=== PATIENT | female | born 1990 | race Caucasian/White ===

== ENCOUNTER 2018-07-02 22:28 | Emergency (ER) | payer OTHER ==
[2018-07-02] MEDS ORDERED: NS 1,000 ML IV ONE (22:54)
[2018-07-02 23:14] LABS: PLATELET COUNT 289 10^3/uL (150-400)
--- NOTE | 2018-07-02 23:21 | EDPHY ---
H & P Stated Complaint: mid abd epigastric pain Time Seen by Provider: 07/02/18 22:45 HPI/ROS: Chief Complaint: Abdominal pain HPI: 27-year-old G0, last menstrual period 2 weeks ago is presenting with epigastric abdominal pain which has been coming in waves today. Patient states that last night she woke up with some nausea. Vomited once at that time. Went back to bed. Audrey the course today she has had some generalized nausea with a couple of loose stools. This evening she developed some upper abdominal central cramping. It comes in waves. Some nausea but no vomiting. No constipation. Symptoms right now are nearly gone. No history of similar episodes in the past. No prior surgeries. No urinary urgency or frequency. No fevers or chills. No cough or chest pain or shortness of breath. ROS: 10 systems were reviewed and were negative except those elements noted in the HPI. PMH: None Social History: No smoking, no alcohol, no recreational drug use Family History: non-contributory Physical Exam: Gen: Awake, Alert, No Distress HEENT: Nose: no rhinorrhea Eyes: PERRLA, EOMI Mouth: Moist mucosa Neck: Supple, no JVD Chest: nontender, lungs clear to auscultation Heart: S1, S2 normal, no murmur Abd: Soft, non-tender, no guarding Back: no CVA tenderness, no midline tenderness Ext: no edema, non-tender Skin: no rash Neuro: CN II-XII intact, Sensation grossly intact, Strength 5/5 in bilateral upper and lower extremities - Personal History LMP (Females 10-55): 15-21 Days Ago Current Tetanus/Diphtheria Vaccine: Yes Current Tetanus Diphtheria and Acellular Pertussis (TDAP): Yes - Medical/Surgical History Hx Asthma: No Hx Chronic Respiratory Disease: No Hx Diabetes: No Hx Cardiac Disease: No Hx Renal Disease: No Hx Cirrhosis: No Hx Alcoholism: No Hx HIV/AIDS: No Hx Splenectomy or Spleen Trauma: No - Social History Smoking Status: Never smoked Constitutional: Initial Vital Signs Temperature (C) 36.8 C 07/02/18 22:43 Heart Rate 121 H 07/02/18 22:43 Respiratory Rate 18 07/02/18 22:43 Blood Pressure 122/86 H 07/02/18 22:43 O2 Sat (%) 96 07/02/18 22:43 O2 Delivery Mode Room Air Allergies/Adverse Reactions: Penicillins Allergy (Verified 07/02/18 22:43) Home Medications: Medication Instructions Recorded Kariva 28 Day Tablet 07/02/18 Medical Decision Making ED Course/Re-evaluation: 27-year-old woman with epigastric abdominal pain. She has a soft benign abdomen here. Laboratory evaluations are unremarkable. Symptoms consistent likely with a gastroenteritis. She she is declining any imaging at this time and I think this is appropriate. Will discharge with follow-up as an outpatient , return for any concerns. - Data Points Laboratory Results: Laboratory Results 07/02/18 23:05 07/02/18 23:05 07/02/18 07/02/18 07/02/18 23:05 23:05 23:05 WBC 8.71 10^3/uL 10^3/uL (3.80-9.50) RBC 4.83 10^6/uL 10^6/uL (4.18-5.33) Hgb 14.9 g/dL g/dL (12.6-16.3) Hct 41.9 % % (38.0-47.0) MCV 86.7 fL fL (81.5-99.8) MCH 30.8 pg pg (27.9-34.1) MCHC 35.6 g/dL g/dL (32.4-36.7) RDW 12.8 % % (11.5-15.2) Plt Count 289 10^3/uL 10^3/uL (150-400) MPV 9.7 fL fL (8.7-11.7) Neut % (Auto) 86.8 % H % (39.3-74.2) Lymph % (Auto) 9.5 % L % (15.0-45.0) [place] % (Auto) 3.3 % L % (4.5-13.0) Eos % (Auto) 0.0 % L % (0.6-7.6) Baso % (Auto) 0.2 % L % (0.3-1.7) Nucleat RBC Rel Count 0.0 % % (0.0-0.2) Absolute Neuts (auto) 7.55 10^3/uL H 10^3/uL (1.70-6.50) Absolute Lymphs (auto) 0.83 10^3/uL L 10^3/uL (1.00-3.00) Absolute Monos (auto) 0.29 10^3/uL L 10^3/uL (0.30-0.80) Absolute Eos (auto) 0.00 10^3/uL L 10^3/uL (0.03-0.40) Absolute Basos (auto) 0.02 10^3/uL 10^3/uL (0.02-0.10) Absolute Nucleated RBC 0.00 10^3/uL 10^3/uL (0-0.01) Immature Gran % 0.2 % % (0.0-1.1) Immature Gran # 0.02 10^3/uL 10^3/uL (0.00-0.10) Sodium 136 mEq/L mEq/L (135-145) Potassium 3.4 mEq/L mEq/L (3.3-5.0) Chloride 103 mEq/L mEq/L (97-110) Carbon Dioxide 22 mEq/l mEq/l (22-31) Anion Gap 11 mEq/L mEq/L (6-14) BUN 12 mg/dL mg/dL (7-23) Creatinine 0.6 mg/dL mg/dL (0.6-1.0) Estimated GFR > 60 Glucose 105 mg/dL H mg/dL (70-100) Calcium 9.0 mg/dL mg/dL (8.5-10.4) Total Bilirubin 0.5 mg/dL mg/dL (0.1-1.4) AST 21 IU/L IU/L (14-46) ALT 30 IU/L IU/L (9-52) Alkaline Phosphatase 63 IU/L IU/L (38-126) Total Protein 7.3 g/dL g/dL (6.3-8.2) Albumin 4.1 g/dL g/dL (3.5-5.0) Lipase 15 IU/L L IU/L (23-300) Beta HCG, Qual NEGATIVE Medications Given: Discontinued Medications Sodium Chloride (Ns) 1,000 mls @ 0 mls/hr IV ONCE ONE; Wide Open PRN Reason: Protocol Stop: 07/02/18 22:55 Last Admin: 07/02/18 23:07 Dose: 1,000 mls Departure - Departure Disposition: Home, Routine, Self-Care Clinical Impression: Abdominal pain, Acute gastroenteritis Condition: Good Instructions: Acute Abdominal Pain (ED), Gastroenteritis (ED) Additional Instructions: Make sure to drink plenty of fluids. Follow up with primary care physician in 3-4 days for further evaluation if symptoms are not improved. Return to the emergency department for increasing abdominal pain, uncontrolled nausea vomiting, fevers, chills, or any other concerns. Referrals: Riley Jarquin DO [Medical Doctor] - As per Instructions
[2018-07-03 00:50] VITALS: BP 103/71
== END 2018-07-03 00:51 | disposition home or self-care (01) ==
DX: K52.9 Noninfective gastroenteritis and colitis, unspecified (principal); E86.9 Volume depletion, unspecified